=== PATIENT | female | born 1995 | race Caucasian/White ===

== ENCOUNTER 2018-03-24 23:04 | Inpatient (IN) ==
[~2018-03-24 23:04] MED LIST: *HR* Nalbuphine 10 MG/ML AMPUL IVP PRN; Famotidine 20 MG/2 ML VIAL IVP PRN; Metoclopramide 10 MG/2 ML VIAL IVP PRN; Naloxone 0.4 MG/ML INJ IVP PRN; Ondansetron 4 MG/2 ML VIAL IVP PRN
--- NOTE | 2018-03-24 23:04 | OB/GYN History & Physical ---
Date of Encounter: 03/24/18 Time of Encounter: 23:02 Assessment and Plan (1) 39 weeks gestation of Current visit: Yes Status: Acute Admit for IOL GBS negative Routine labor management Cytotec; consider gil Patient may have nubain/epidural upon request Anticipate vaginal delivery POC per consult with Dr Chapman History of Present Illness Chief complaint: Contractions HPI: The patient is a 22-year-old female with an EDC of 03/25/18. She reports an active fetus, Contractions that have increased in frequency throughout the day, no vaginal bleeding or loss of fluid. She is scheduled for an induction of labor on her due date, 03/25. She has given informed consent at her last visit, and her Louis score was 10. Her blood type is B+, she is rubella immune, va ricella nonimmune, GBS negative. She has a history of a cardiac ablation for Nyjyh-Yyplcsdle-Fmdky syndrome. She has had some palpitations and tachycardia but nothing that has been concerning. She has been cleared to cardiology and anesthesiology. She is a history of Demetrio's thyroiditis and her lab work has remained stable during the , not requiring medication Past Med Surg Social Fam HX - Past Medical History Medical history: hypertension, other - Social History Smoking Status: Never smoker Smokeless Tobacco Status: No Alcohol use: none Obstetrical History - Pregnancies : 1 Para: 0 Term: 0 : 0 Ab's: 0 Livin Medications and Allergies Nitrofurantoin (BID) [Macrobid] 100 mg PO BID #14 capsule 08/18/17 [Rx] Vits #90/Iron Fum/FA [ Formula Tablet] 1 each PO DAILY #90 tablet 08/18/17 [Rx] Allergy/AdvReac Type Severity Reaction Status Date / Time latex Allergy Hives Verified 08/18/17 18:20 Review of System OB All systems PM: reviewed and no additional remarkable complaints except as stated Exam - Constitutional Constitutional: well developed, well nourished, average body habitus, moderate distress - HEENT HEENT: Normocephaly, Mucus Membranes Moist - Neck Neck exam: full ROM - Lungs Respiratory exam: CTAB - Cardiovascular Cardiovascular exam: RRR, +S1, +S2 - Abdomen Abdomen: Present: bowel sounds normal, gravid, non tender - Extremities Extremities exam: normal capillary refill, normal inspection, radial pulses palpable and symmetrical Deep Tendon Reflex Grade: 2+ Normal - Vagina Vagina: Present: normal moisture - Cervix Dilation: 2 Effacement: 80 Station: -2 - Uterus Uterus exam: Present: normal size, normal contour - Anus/Rectum Anus/Rectum: Present: normal perianal skin Results All other labs normal.
[2018-03-24] MEDS ORDERED: Ringers Solution, Lactated 1,000 ML IVC SCH (23:15)
[2018-03-24 23:41] LABS: Basophils % 0.1 %; Eosinophils # 0.1 K/mcL (0.0-0.6); Eosinophils % 0.7 %; Hematocrit 36.1 % (35.3-44.9); Hemoglobin 11.8 g/dL (11.5-15.4); Immature Granulocytes % 0.3 % (0-4); Immature Platelets 5.5 % (1.1-6.1); Lymphocytes % 16.5 %; Mean Corpuscular HGB Conc 32.7 g/dL (31.6-35.5); Mean Corpuscular Hemoglobin 28.3 pg (28.0-33.3); Mean Corpuscular Volume 86.6 fL (83.0-100.0); Mean Platelet Volume 11.4 fL (9.4-12.4); Monocytes # 0.7 K/mcL (0.0-1.3); Neutrophils # 9.1 K/mcL (1.6-8.9); Platelet Count 219 K/mcL (140-400); Red Blood Count 4.17 M/mcL (3.82-4.97); Red Cell Distribution Width 13.8 % (11.5-14.5); Segmented Neutrophils % 76.4 %
--- NOTE | 2018-03-24 23:49 | OB Labor Progress Note ---
Date of Encounter: 03/24/18 Time of Encounter: 23:46 Labor Progress Note - Subjective Subjective: Patient breathing through contractions; she is requesting an epidural balwinder. - Vital Signs Vital Signs: VSS - Cervix Cervix: 2-3/80/-2 - Heart Tones Heart Tones: 160 cat 1 tracing - Bone Gap Bone Gap: Contractions every 3-5 minutes - Interventions Interventions: intracervical gil catheter placed without difficulty. Patient and fetus tolerated well. Patient given nubain prior to insertion. - Plan Physician notified: No Plan: Admit for IOL. Continue routine labor management GBS negative Consider pitocin/AROM after intracervical gil displaced Patient may have nubain/epidural upon request Anticipate vaginal delivery POC per consult with Dr Chapman
[2018-03-24 23:50] LABS: Amphetamine Screen,Urine Negative ng/mL (Cutoff=1000); Barbiturate Screen,Urine Negative ng/mL (Cutoff=200); Benzodiazepines Screen,Urine Negative ng/mL (Cutoff=200); Cannabinoid Screen,Urine Negative ng/mL (Cutoff = 50); Cocaine Screen,Urine Negative ng/mL (Cutoff= 300); Opiate Screen,Urine Negative ng/mL (Cutoff=300); Phencyclidine Screen,Urine Negative ng/mL (Cutoff=25)
[2018-03-25] MEDS ORDERED: Ondansetron 4 MG/2 ML VIAL IVP PRN (00:01)
[2018-03-25] MEDS ORDERED: EPHEDrine 50 MG/ML VIAL IVP PRN (00:01)
[2018-03-25] MEDS ORDERED: *HR* Ropivacaine/PF 0.2% 20 ML VIAL EP ONE (00:01)
[2018-03-25] MEDS ORDERED: Naloxone 0.4 MG/ML INJ IVP PRN (00:01)
[2018-03-25] MEDS ORDERED: *HR* FentaNYL (PF) 100 MCG/2 ML VIAL EP ONE (00:01)
--- NOTE | 2018-03-25 00:05 | Anesthesia Evaluation PreOp ---
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 pt states "levels are good" and hasnt had to take synthroid for 2 years.) Anesthesia History: No Prior Anesthetic Complications, Past Anesthesia (history Cardiac ablation, shoulder surgery) : Yes Alcohol Use: none Drug use: none Medications and Allergies Vits #90/Iron Fum/FA [ Formula Tablet] 1 each PO DAILY #90 tablet 08/18/17 [Rx] Allergy/AdvReac Type Severity Reaction Status Date / Time latex Allergy Hives Verified 08/18/17 18:20 - Meds/Allergy Pre-op Review Medications Reviewed: Yes Allergies Reviewed: Yes Beta Blockers on Current Med List: No Anesthesia Results - Labs 03/24/18 23:20 Anesthesia Exam BP 131/89 P 81 R 16 T 97.6 Height: 5'9" Weight: 104kg NPO (# of Hours): 4 Pain Scale: 6 Pain Scale Used: Numeric (1 - 10) - HEENT Pupil (Motor): Pupils equal Mallampati: II Teeth: Normal Oral Opening: Greater than 3 - LINE PAINTING MACHINE OPERATOR LOC: Oriented LINE PAINTING MACHINE OPERATOR Motor: Normal RUE, Normal LUE, Normal RLE, Normal LLE, Normal Face LINE PAINTING MACHINE OPERATOR Sensory: Normal: RUE, LUE, RLE, LLE, Face - Cardiac Rhythm: Regular Murmur: None JVD: No Carotid Bruit: No - Pulmonary Breath Sounds: bilateral Clear Respiratory Effort: Symmetrical Anesthesia Assess/Plan ASA Score: 2 Level of consciousness: Cooperative Anesthetic Plan: Epidural Autologous Blood: No Monitoring Plan: Standard Monitors Recovery Plan: Other
[2018-03-25] MEDS ORDERED: Epidural Premix (fent/bupiv) 110 ML EP SCH (00:15)
[2018-03-25] MEDS ORDERED: Lidocaine -MPF 1% 5 ML AMPUL ONE (00:38)
[2018-03-25] MEDS ORDERED: *HR* FentaNYL (PF) 100 MCG/2 ML VIAL ONE (00:38)
--- NOTE | 2018-03-25 04:02 | Anesthesia Procedures ---
Date of Encounter: 03/25/18 Time of Encounter: 03:14 Procedures: Anesthesia - Epidural/Spinal Patient ID/Chart reviewed: Yes Patient examined: Yes OB Eval: Gestational age: 39 OB Eval: : 1 OB Eval: Hx Para: 0 OB Eval: Dilated at (cm): 7 OB Eval: Contractions: Non-stressed pattern Consent Obtained: Yes Supplemental Oxygen: None/Room Air Site Prep: Aseptic Technique, Sterile prep and drape Patient position: upright Local Anesthetic: Lidocaine 1% Amount of Local Anesthetic used: 3 Touhy Needle Gauge: 18 Touhy Needle Depth (cm): 7 Catheter Depth at Skin (cm): 15 Test Dose (1.5% Lido + Epi): Volume given (mls): 3 Test Dose Result: Negative Loading Dose: Fentanyl (mcg): 100 Loading Dose: Other: Ropivicaine 0.2% 8ml Loading Dose Administered: Thru Catheter Infusion Med: 0.125% Bupivacaine w/ 2 mcg/ml Fentanyl Infusion Rate (mls/hr): [address]: Tegaderm, Tape Interspace Used: L3-L4 Loss of Resistance (NIA): Yes Blood: Yes (1st pass, 2nd pass no heme) CSF: No Paresthesia: No Procedure: KODAK placed 1st pass in upright position without any immediate noted complications. VSS and FHT stable throughout. Vitals + FHT's: 0314 BP 139/88 P 72 R20 0349 BP 149/72 P 83 R 16 FHT 130s
[2018-03-25] MEDS ORDERED: Oxytocin 20 units/ LR 1000 mL 20 UNIT/1,000 ML BAG IVC ONE ×2 (05:02→09:21)
--- NOTE | 2018-03-25 07:04 | OB Labor Progress Note ---
Date of Encounter: 03/25/18 Time of Encounter: 07:02 Labor Progress Note - Subjective Subjective: Patient states she is feeling pressure but does not have the urge to push. - Vital Signs Vital Signs: VSS - Cervix Cervix: C/C/+1 - Heart Tones Heart Tones: 140 cat 1 tracing - [place]: Contractions every 3 minutes - Plan Physician notified: Yes Physician notified details: Dr Conner notified patient close to delivery; states she will be here [place] and requests I attend delivery if she is not available. Plan: Continue routine labor management GBS negative Labor down Anticipate vaginal delivery POC per consult with Dr Conner.
[2018-03-25] MEDS ORDERED: Lidocaine/EPI 1:200k 1% PF 10 ML VIAL ONE (08:32)
--- NOTE | 2018-03-25 08:54 | OB/GYN Procedure Note ---
Delivery - Delivery Date: 03/25/18 Provider: Elissa Conner Intrapartum events: none Delivery induction: gil Delivery monitor: external FHT, external uterine Anesthesia: local, epidural Quantitated Blood Loss: 100 - (s) A Delivery Date: 03/25/18 Delivery Time: 08:21 Presentation: vertex Position: CRISTIAN Route of delivery: Gender: Male Viability: Viable Pounds: 6 Ounces: 15 Weight Gram: 3.135 kg at 1 minute: 8 at 5 mins: 9 Shoulder Dystocia: not encountered Placenta: spontaneous Cord: 3 umbilical vessels - Repair Episiotomy: none Laceration Description: Perineal - 2nd Degree - Complications Delivery complications: none Delivery comments: The patient was complete and pushing and after initial few pushes started having decelerations during the contractions. She was repositioned on her left side and some oxygen was applied by facemask. The bradycardia resolved. The patient then continued to push with maternal effort having a spontaneous vaginal delivery in the CRISTIAN position of a vigorous male weighing 6 lbs. 15 oz. with Apgars of 8 at 1 minute and 9 at 5 minutes. was placed on the maternal abdomen, skin to skin, and care transferred to the nursery care team. The cord was clamped and cut after pulsations ceased. The placenta was delivered spontaneous and intact. There was a second-degree midline laceration which was repaired with 3-0 Monocryl first deeply for support and then in a running fashion for complete closure. Estimated blood loss 100 mL's. Complications none. - Disposition Mom disposition: stable in LDR disposition: stable in LDR
[2018-03-25] MEDS ORDERED: Sennosides 8.6 MG TABLET PO PRN (11:38)
[2018-03-25] MEDS ORDERED: Measles/Mumps/Rubella Vacc 0.5 ML VIAL SQ PRN (11:38)
[2018-03-25] MEDS ORDERED: *HR* HYDROcodone/Acet 5/325 mg TABLET PO PRN (11:38)
[2018-03-25] MEDS ORDERED: Prenatal Vit/FA 1 EACH TABLET PO SCH (11:38)
[2018-03-25] MEDS ORDERED: Oxytocin 20 units/ LR 1000 mL 20 UNIT/1,000 ML BAG IVC SCH (11:38)
[2018-03-25] MEDS ORDERED: Acetaminophen 325 MG TABLET PO PRN (11:38)
[2018-03-25] MEDS: Ibuprofen 600 MG TABLET PO SCH ×2 (17:15→22:41)
[2018-03-26] MEDS: Ibuprofen 600 MG TABLET PO SCH (08:24)
--- NOTE | 2018-03-26 09:06 | Discharge Summary ---
Date of Encounter: 03/26/18 Time of Encounter: 09:07 - Discharge Diagnosis (1) Status post vaginal delivery Priority: Primary Status: Acute Comments: Patient meeting day 1 milestones. She has voiding without difficulty, pain is well-controlled, no bowel movement since delivery, bleeding light to moderate. Patient is doing well and would like to be discharged home today. Follow-up with Dr. Conner in 4 weeks as scheduled (2) Breast feeding status of mother Priority: Secondary Status: Acute Comments: support as necessary. Patient states she has a breast pump at home (3) Second degree perineal laceration Priority: Secondary Status: Acute Comments: Ice pads as necessary, Dermoplast as needed, witch felicia pads as needed. Motrin for pain - Discharge Medications Prescriptions: Ibuprofen [Motrin] 600 mg PO Q6HR #60 tablet Docusate [Colace] 100 mg PO BID #60 capsule Home Medications: Vits #90/Iron Fum/FA [ Formula Tablet] 1 each PO DAILY #90 tablet 08/18/17 [Rx] Acetaminophen [Tylenol] 650 mg PO Q6HR PRN tablet 03/26/18 [Rx] Docusate [Colace] 100 mg PO BID #60 capsule 03/26/18 [Rx] Ibuprofen [Motrin] 600 mg PO Q6HR #60 tablet 03/26/18 [Rx] Allergies/Adverse Reactions: Allergy/AdvReac Type Severity Reaction Status Date / Time latex Allergy Hives Verified 08/18/17 18:20 Data Procedures and tests throughout hospitalization: Laboratory Tests 03/24/18 03/24/18 23:20 23:20 WBC 11.9 H RBC 4.17 Hgb 11.8 Hct 36.1 MCV 86.6 MCH 28.3 MCHC 32.7 RDW 13.8 Plt Count 219 MPV 11.4 Immature Gran % 0.3 Seg Neutrophils % 76.4 Lymphocytes % 16.5 Monocytes % 6.0 Eosinophils % 0.7 Basophils % 0.1 Neutrophils # 9.1 H Lymphocytes # 2.0 Monocytes # 0.7 Eosinophils # 0.1 Basophils # 0.0 Immature Plt Fraction 5.5 Urine Opiates Screen Negative Ur Barbiturates Screen Negative Ur Phencyclidine Scrn Negative Ur Amphetamines Screen Negative U Benzodiazepines Scrn Negative Urine Cocaine Screen Negative U Marijuana (THC) Screen Negative Ur Drug Screen Interp See Below Date of admission: 03/24/18 23:04 Primary care physician: PCP NONE Consults: 03/25/18 11:38 Consult to Personnel Clerks Supervisor [CONS] Routine Comment: Vaginal delivery, consult needed Discharging clinician: Radha Aguila Anticipated date of discharge: 03/26/18 - Patient Status Disposition: Home, Self-Care Condition: Good Functional capacity at discharge: independent ambulation Overall status at discharge: patient is progressing back to baseline - Discharge Instructions Follow Up With: NONE,PCP [Primary Care Provider] - Elissa Conner MD [Partnered Physician] - - Diet and Activity Activity: resume usual activities as tolerated Diet: regular diet Hospital Course Reason for admission: active labor Delivery: Episiotomy: none Laceration: 2nd degree Other procedures: none complications: none Discharge diagnosis: IUP at term delivered [place] baby: male Hospital course: Patient doing well day 1 post vaginal delivery. She is tolerating regular diet, pain is well-controlled, she is voiding without difficulty. Will discharge home today with follow-up in 4 [address] scheduled with Dr. Conner. - Delivery Date: 03/25/18 Provider: Elissa Conner Intrapartum events: none Delivery induction: gil Delivery monitor: external FHT, external uterine Anesthesia: local, epidural Quantitated Blood Loss: 100 - (s) A Infant Delivery Date: 03/25/18 Delivery Time: 08:21 Presentation: vertex Position: CRISTIAN Route of delivery: Gender: Male Viability: Viable Pounds: 6 Ounces: 15 Weight Gram: 3.135 kg at 1 minute: 8 at 5 mins: 9 Shoulder Dystocia: not encountered Placenta: spontaneous Cord: 3 umbilical vessels - Repair Episiotomy: none Laceration Description: Perineal - 2nd Degree - Complications Delivery complications: none Delivery comments: The patient was complete and pushing and after initial few pushes started having decelerations during the contractions. She was repositioned on her left side and some oxygen was applied by facemask. The bradycardia resolved. The patient then continued to push with maternal effort having a spontaneous vaginal delivery in the CRISTIAN position of a vigorous male infant weighing 6 lbs. 15 oz. with Apgars of 8 at 1 minute and 9 at 5 minutes. Infant was placed on the maternal abdomen, skin to skin, and care transferred to the nursery care team. The cord was clamped and cut after pulsations ceased. The placenta was delivered spontaneous and intact. There was a second-degree midline laceration which was repaired with 3-0 Monocryl first deeply for support and then in a running fashion for complete closure. Estimated blood loss 100 mL's. Complications none. Time Attestation: Total time spent providing and/or coordinating discharge services: Time Spent: Less than 30 minutes Exam - Constitutional Vitals: Temp Pulse Resp BP Pulse Ox 98.3 F 87 16 123/86 98 03/26/18 03:20 03/26/18 03:20 03/26/18 03:20 03/26/18 03:20 03/26/18 03:20 General appearance IM: A&O X 3, pleasant, no acute distress, answers questions appropriately - Respiratory Respiratory exam: Present: CTAB - Cardiovascular Cardiovascular exam IM: Present: RRR, +S1, +S2 - GI/Abdominal GI/Abdominal exam IM: normal bowel sounds - Rectal Rectal exam: deferred - Uterine Tone: Firm Uterus Position: At Umbilicus - Extremities Exam Extremities exam IM: Present: full ROM, normal capillary refill, normal insp ection - Neurological Exam Neurological exam: alert, normal gait, oriented X3
[2018-03-26 09:14] VITALS: BP 115/79
[2018-03-26] MEDS ORDERED: Lanolin 7 G OINT...G. TP PRN (10:37)
== END 2018-03-26 13:17 | disposition home or self-care (01) | DRG 807 ==
LOC: 1NENULAB → 1NENUOBS 03-25 12:31
PROVIDERS: ADMIT Advanced Practice Midwife; ATTEND Advanced Practice Midwife